=== PATIENT | female | born 1980 | race African-American/Black ===

== ENCOUNTER 2016-08-05 14:10 | Emergency (ER) | payer BC ==
[~2016-08-05] VITALS: Ht 170.2 cm; Wt 79.4 kg
[2016-08-05] MEDS ORDERED: ACETAMINOPHEN 325 MG TABLET PO ONE (15:00)
[2016-08-05] MEDS ORDERED: ACETAMINOPHEN 325 MG TABLET ONE (15:04)
[2016-08-05 15:37] LABS: BASOPHILS # (AUTO) 0.1 /CMM (0.0-0.2); BASOPHILS % (AUTO) 2.5 % (0.0-2.0); DIFF TOTAL % 100 %; EOSINOPHILS # (AUTO) 0.1 /CMM (0.0-0.7); HEMATOCRIT 35 % (33-45); HEMOGLOBIN 11.7 g/dL (11.5-14.8); LYMPHOCYTES # (AUTO) 1.1 /CMM (0.8-4.8); LYMPHOCYTES % (AUTO) 24.3 % (20.0-44.0); MEAN CORPUSCULAR HEMOGLOBIN 27 PG (26.0-33.0); MEAN CORPUSCULAR HGB CONC 33 g/dl (31.0-36.0); MEAN CORPUSCULAR VOLUME 81 fL (82-100); MONOCYTES # (AUTO) 0.2 /CMM (0.1-1.30); MONOCYTES % (AUTO) 3.5 % (2.0-12.0); NEUTROPHILS # (AUTO) 3.1 /CMM (1.8-8.9); NEUTROPHILS % (AUTO) 67.7 % (43.0-81.0); PLATELET COUNT (AUTO) 208 /CMM (150-450); RED BLOOD CELL COUNT(AUTO) 4.32 MIL/uL (4.0-5.2); WHITE BLOOD COUNT (AUTO) 4.6 K/uL (4.3-11.0)
[2016-08-05 15:42] LABS: KETONES,URINE Negative (NEGATIVE); LEUKOCYTE ESTERASE ,URINE Negative (NEGATIVE); PH,URINE 6.5 (5.0-8.0)
[2016-08-05 15:43] LABS: ADD UA MICROSCOPIC YES
[2016-08-05 15:45] LABS: ADD URINE CULTURE NO
[2016-08-05 16:54] VITALS: BP 124/78
== END 2016-08-05 16:55 | disposition home or self-care (01) ==
LOC: ER 14:15
DX: O46.8X1 Other antepartum hemorrhage, first trimester (principal); Z3A.12 12 weeks gestation of pregnancy; J45.909 Unspecified asthma, uncomplicated; M32.9 Systemic lupus erythematosus, unspecified; Z91.012 Allergy to eggs
CPT/HCPCS: 36415; 76856; 81001; 84702; 85025; 99285; A4606; Z7610; 81000-TC

== ENCOUNTER 2017-07-14 22:36 | Emergency (ER) | payer BC ==
[~2017-07-14] VITALS: Ht 170.2 cm; Wt 90.7 kg
--- NOTE | 2017-07-14 22:40 | NUR ---
36 YO female bb self. patient is alert x 3, c/o allergic reation x 30 min. patient noted angioedema, patient states she feels like her throat is closing. i took pt straight to ER bed, informed MD ramsay. Started a 20g left AC iv started. Medicated patient per verbal order. patient is gowned, placed on lunchroom monitor. will continue to monitor
[2017-07-14] MEDS ORDERED: FAMOTIDINE/PF INJ 20 MG/2 ML VIAL IV ONE (22:42)
[2017-07-14] MEDS ORDERED: EPINEPHRINE (1:1000) 1 MG/ML AMPUL ONE (22:42)
[2017-07-14] MEDS ORDERED: methylPREDNISolone SOD SUCC 125 MG/2ML VIAL ONE (22:42)
[2017-07-14] MEDS ORDERED: diphenhydrAMINE HCL 50 MG/ML VIAL ONE (22:42)
[2017-07-14] MEDS ORDERED: diphenhydrAMINE HCL 50 MG/ML VIAL IV ONE (23:00)
[2017-07-14] MEDS ORDERED: methylPREDNISolone SOD SUCC 125 MG/2ML VIAL IV ONE (23:00)
[2017-07-14] MEDS ORDERED: EPINEPHRINE (1:1000) MDV 30 MG/30ML VIAL SUBCUT ONE (23:00)
[2017-07-14] MEDS ORDERED: FAMOTIDINE/PF INJ 40 MG in IV D5W 250 ML IV ONE (23:00)
[2017-07-14] MEDS ORDERED: IV NS 0.9% 1,000 ML BAG IV ONE (23:00)
--- NOTE | 2017-07-15 00:35 | NUR ---
Patient discharged to home in stable condition. Written and verbal after care instructions given. Patient verbalizes understanding of instruction.IV removed. Catheter intact and site benign. Pressure and 4x4 applied to site. No bleeding noted. PT ambulatory with a steady gait VITAL SIGNS WITHIN NORMAL LIMITS.
[2017-07-15 00:39] VITALS: BP 116/68
== END 2017-07-15 00:40 | disposition home or self-care (01) ==
LOC: ER 22:39
DX: T78.40XA Allergy, unspecified, initial encounter (principal); J45.909 Unspecified asthma, uncomplicated; E06.3 Autoimmune thyroiditis; M32.9 Systemic lupus erythematosus, unspecified; Z91.012 Allergy to eggs; X58.XXXA Exposure to other specified factors, initial encounter; Y93.89 Activity, other specified; Y92.89 Other specified places as the place of occurrence of the external cause; Y99.8 Other external cause status
CPT/HCPCS: 96361; 96365; 96366; 96372; 96375; 99285; A4606; J0171; J1200; J2930; J3490; Z7610

== ENCOUNTER 2018-07-11 18:47 | Inpatient (IN) | payer BC, OTHER ==
[~2018-07-11] VITALS: Ht 170.2 cm; Wt 83.1 kg
--- NOTE | 2018-07-11 19:10 | NUR ---
PT BIBSELF COMPLAINING OF RIGHT LOWER QUADRANT PAIN RADIATING ALL OVER ABDOMEN SINCE THIS MORNING. PT STATES SHES HAD MULTIPLE EPISODES OF N/V/D. PT DENIES SOB, CHEST PAIN, DYSURIA, HEADACHE. PT AAOX4. RESPIRATIONS EVEN AND UNLABORED. SKIN WARM AND INTACT. VITAL SIGNS STABLE. WILL CONTINUE TO MONITOR
[2018-07-11 19:22] LABS: BASOPHILS % (AUTO) 0.4 % (0.0-2.0); EOSINOPHILS % (AUTO) 1.2 % (0.0-6.0); HEMATOCRIT 35 % (33-45); LYMPHOCYTES # (AUTO) 1.2 /CMM (0.8-4.8); LYMPHOCYTES % (AUTO) 14.1 % (20.0-44.0); MEAN CORPUSCULAR HGB CONC 34 g/dl (31.0-36.0); MEAN CORPUSCULAR VOLUME 81 fL (82-100); MONOCYTES # (AUTO) 0.6 /CMM (0.1-1.30); MONOCYTES % (AUTO) 6.5 % (2.0-12.0); NEUTROPHILS # (AUTO) 6.7 /CMM (1.8-8.9); NEUTROPHILS % (AUTO) 77.8 % (43.0-81.0); PLATELET COUNT (AUTO) 224 /CMM (150-450); RED BLOOD CELL COUNT(AUTO) 4.31 MIL/uL (4.0-5.2); WHITE BLOOD COUNT (AUTO) 8.7 K/uL (4.3-11.0)
[2018-07-11] MEDS ORDERED: ONDANSETRON HCL/PF 4 MG/2 ML VIAL ONE (19:22)
[2018-07-11] MEDS ORDERED: MORPHINE SULFATE INJ 4 MG/ML DISP.SYRIN ONE ×2 (19:22→21:09)
[2018-07-11] MEDS ORDERED: ONDANSETRON HCL/PF 4 MG/2 ML VIAL IVP ONE (19:30)
[2018-07-11] MEDS ORDERED: MORPHINE SULFATE INJ 2 MG/ML DISP.SYRIN IV ONE ×2 (19:30→21:30)
[2018-07-11] MEDS ORDERED: IV NS 0.9% 1,000 ML BAG IV ONE (19:30)
[2018-07-11 19:32] LABS: POTASSIUM 3.6 mmol/L (3.5-5.1)
[2018-07-11 19:38] LABS: ALBUMIN 3.3 g/dL (3.4-5.0); BILIRUBIN,DIRECT 0.1 mg/dL (0.0-0.2); BILIRUBIN,TOTAL 0.6 mg/dL (0.2-1.0); TOTAL PROTEIN, SERUM 6.4 g/dL (6.4-8.2)
[2018-07-11 19:48] LABS: APPEARANCE,URINE Clear (CLEAR); BILIRUBIN,URINE Negative (NEGATIVE); BLOOD, URINE Moderate Ery/uL (NEGATIVE); COLOR,URINE Yellow (YELLOW); KETONES,URINE Negative (NEGATIVE); LEUKOCYTE ESTERASE ,URINE Negative (NEGATIVE); NITRITE, URINE Negative (NEGATIVE); PH,URINE 8.5 (5.0-8.0); PROTEIN,URINE Trace mg/dl (NEGATIVE); UGLUCOSE Negative (NEGATIVE)
[2018-07-11] MEDS ORDERED: CT SWABBABLE VALVE TRANS SET 1 EA INFUS.SET MC ONE (19:53)
[2018-07-11] MEDS ORDERED: IOHEXOL-300 100 ML VIAL IV ONE (19:53)
[2018-07-11] MEDS ORDERED: IV NS 0.9% 250 ML IV ONE (19:54)
[2018-07-11 20:02] LABS: WBC,URINE 0-2 /HPF (0-3)
[2018-07-11 20:03] LABS: BACTERIA,URINE Rare /HPF (None Seen); MUCUS,URINE Few /LPF (None Seen)
--- NOTE | 2018-07-11 20:20 | NUR ---
PT BROUGHT BY RADIOLOGY FOR CT
[2018-07-11] MEDS ORDERED: CEFOXITIN 1 G VIAL ONE (21:09)
--- NOTE | 2018-07-11 21:16 | NUR ---
PAGED SURGEON REWEAVER, MESSAGE LEFT FOR DR MINAYA
--- NOTE | 2018-07-11 21:16 | NUR ---
PANEL PAGED; JENNY FUNERAL DIRECTOR AND EMBALMER
--- NOTE | 2018-07-11 21:25 | NUR ---
katelyn acute appendicitis
[2018-07-11] MEDS ORDERED: CEFOXITIN 2 G in IV NS 0.9% 100 ML IV ONE (21:30)
--- NOTE | 2018-07-11 21:53 | NUR ---
report given to efraín ruffin for jamil.
[2018-07-11 22:00] VITALS: BP 131/76
--- NOTE | 2018-07-11 22:00 | NUR ---
RN MS ADMITTING NOTES RECEIVED PATIENT FROM ER VIA PRERNA. DX. ACUTE APPENDICITIS. PATIENT IS ALERT AND ORIENTED X4, VERBALLY RESPONSIVE, ABLE TO MAKE NEEDS KNOWN. BREATHING EVEN AND UNLABORED. NO SOB NOTED. O2SAT 100% ON ROOM-AIR. WITH COMPLAINTS OF PAIN THE ABDOMEN 8-03/29. INFORMED PATIENT THAT I WILL PAGE THE DOCTOR FOR ORDERS. IV LINE ON THE RIGHT AC#20 INTACT AND PATENT. SKIN DRY AND WARM TO TOUCH. EXPLAINED THE PROCESS OF ADMISSION, INCLUDING SKIN ASSESSMENT. NO SKIN ISSUES FOUND. PATIENT'S GAIT IS STEADY. ORIENTED TO THE USE OF FACILITY AMENITIES. BELONGINGS ACCOUNTED FOR. ALL OTHER NEEDS ATTENDED TO. SAFETY MEASURES IN PLACE. CALL LIGHT WITHIN REACH. WILL CONTINUE TO MONITOR.
--- NOTE | 2018-07-11 22:02 | NUR ---
PT TRANSFERRED VIA GURNEY TO [facility] WITH EMT
--- NOTE | 2018-07-11 22:51 | NUR ---
RN MS NOTES PAGED DR. ALVARADO FOR ADMISSION ORDERS. AWAITING CALL BACK.
--- NOTE | 2018-07-12 00:26 | NUR ---
FRANCI RAMON RECEIVED A CALL FROM DR. BUTLER WITH THE FOLLOWING ORDERS: 1. LR @ 110CC/HR 2. MORPHINE 2MG IV Q2H PRN 3. ZOFRAN 4MG IV Q4H PRN 4. AMBIEN 5MG PO QHS PRN 5. CONTINUE MEFOXIN 2MG IV Q8H 6. OBTAIN CONSENT FOR A LAPAROSCOPIC APPENDECTOMY WITH POSSIBLE OPEN. ALL ORDERS NOTED AND CARRIED OUT. Addendum: 07/12/18 at 0030 by CRISTOPHER SANABRIA RN ALSO PER DR. BUTLER, HE WILL DO SURGERY ON THE PATIENT 07/12/18 MID-DAY (AFTER 11AM) AND TO HAVE PATIENT NPO.
[2018-07-12] MEDS ORDERED: ONDANSETRON HCL/PF 4 MG/2 ML VIAL IV PRN (00:30)
[2018-07-12] MEDS ORDERED: MORPHINE SULFATE INJ 2 MG/ML DISP.SYRIN IV PRN (00:30)
[2018-07-12] MEDS ORDERED: ZOLPIDEM TARTRATE 5 MG TABLET PO PRN ×2 (00:30→01:00)
[2018-07-12] MEDS: IV LR 1000 ML 1,000 ML IV PRN ×3 (00:46→19:03)
[2018-07-12] MEDS ORDERED: MAGNESIUM HYDROXIDE 30 ML UDC PO PRN (01:00)
[2018-07-12] MEDS ORDERED: HYDROCODONE/APAP 5/325MG 1 EACH TABLET PO PRN ×2 (01:00→17:00)
[2018-07-12] MEDS ORDERED: MAG HYDROX/AL HYDROX/SIMETH 30 ML UDC PO PRN (01:00)
[2018-07-12] MEDS ORDERED: ONDANSETRON HCL/PF 4 MG/2 ML VIAL IVP PRN ×2 (01:00→17:00)
[2018-07-12] MEDS ORDERED: Z GUARD REMEDY 2 OZ OINT TP PRN (01:00)
[2018-07-12] MEDS ORDERED: ACETAMINOPHEN 325 MG TABLET PO PRN (01:00)
[2018-07-12] MEDS: MORPHINE SULFATE INJ 4 MG/ML DISP.SYRIN IV PRN ×3 (01:17→08:30)
[2018-07-12] MEDS ORDERED: CEFOXITIN 2 G in IV NS 0.9% 100 ML IV SCH (05:00)
--- NOTE | 2018-07-12 05:22 | NUR ---
RN MS NOTES PATIENT HAS CEFOXITIN 2GM IV SCHEDULED FOR 5:00AM. CEFOXITIN 2G IV NOT AVAILABLE IN UNIT'S OMNICELL. ASKED DEREK, FRONT EDGER IF SHE CAN GET MEDICATION. PER DEREK, MEDICATION IS ALSO NOT IN THE NIGHT LOCKER. INFORMED CHARGE NURSE. PER CHARGE NURSE, WE'LL HAVE TO WAIT FOR PHARMACY TO OPEN, BUT TO CALL SOON THEY OPEN. ALSO, TO ENDORSE TO ONCOMING NURSE. WILL CONTINUE TO F/U.
[2018-07-12] MEDS ORDERED: GABA-532 PO (05:57)
[2018-07-12] MEDS ORDERED: HYDR200T81 PO (05:57)
[2018-07-12] MEDS ORDERED: SERT100T PO (05:57)
--- NOTE | 2018-07-12 06:42 | NUR ---
RN MS CLOSING NOTES PATIENT IN BED AWAKE. NO ACUTE CHANGES THROUGHOUT SHIFT. BREATHING EVEN AND UNLABORED. NO SOB NOTED. TOLERATING ROOM AIR. WITH COMPLAINTS OF ABDOMINAL PAIN - MORPHINE LAST GIVEN AT 0534. IV LINE ON RIGHT AC INTACT AND PATENT. SKIN DRY AND WARM TO TOUCH. AFEBRILE. ALL OTHER NEEDS ATTENDED TO. SAFETY MEASURES IN PLACE. CALL LIGHT WITHIN REACH. WILL ENDORSE TO ONCOMING NURSE FOR CONTINUITY OF CARE.
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
[2018-07-12 08:00] VITALS: BP 109/69
--- NOTE | 2018-07-12 08:00 | NUR ---
MS RN NOTES RECEIVED PATIENT AWAKE IN BED WITH NO DISTRESS NOTED. CALL LIGHT WITHIN REACH. PERIPHERAL LINE INTACT AND PATENT. NO C/O PAIN OR DISCOMFORT. BED IN LOW LOCK SETTING. ALL BELONGINGS KEPT NEAR BEDSIDE. WILL CONTINUE TO MONITOR.
[2018-07-12] MEDS ORDERED: LORAZEPAM INJ 2 MG/ML VIAL IV PRN (09:00)
[2018-07-12] MEDS: HYDROXYCHLOROQUINE 200 MG TABLET PO SCH (09:00)
[2018-07-12] MEDS: SERTRALINE HCL 50 MG TABLET PO SCH (09:00)
[2018-07-12] MEDS ORDERED: GABAPENTIN 100 MG CAPSULE PO PRN (09:00)
[2018-07-12] MEDS ORDERED: ANESTHESIA TRAY IN PYXIS 1 EA TRAY MC ONE (11:28)
[2018-07-12] MEDS ORDERED: BUPIVACAINE MPF 0.5% W/EPI INJ 30 ML VIAL ONE (11:29)
[2018-07-12] MEDS ORDERED: LIDOCAINE HCL/PF 1% 30 ML SDV ONE (11:29)
[2018-07-12] MEDS ORDERED: PIPERACILLIN /TAZOBACTAM 3.375 G in IV D5W 50 ML IV SCH (13:00)
[2018-07-12] MEDS: PIPERACILLIN /TAZOBACTAM 3.375 G in IV D5W 100 ML IV SCH ×2 (13:44→21:06)
--- NOTE | 2018-07-12 13:52 | NUR ---
PT BROUGHT TO O.R. WITH STABLE V/S.CONSENTS HAS BEEN SIGNED FOR LAPARASCOPIC APPENDECTOMY.
[2018-07-12] MEDS ORDERED: MIDAZOLAM HCL 2 MG/2ML VIAL ONE (14:19)
[2018-07-12] MEDS ORDERED: FENTANYL PF 250MCG/5ML AMPUL ONE (14:20)
[2018-07-12] MEDS ORDERED: FAMOTIDINE/PF INJ 20 MG/2 ML VIAL IV ONE (14:20)
[2018-07-12] MEDS ORDERED: METOCLOPRAMIDE HCL 10 MG/2 ML VIAL ONE (14:21)
[2018-07-12] MEDS ORDERED: ROCURONIUM BROMIDE 50 MG/5 ML ONE (14:21)
[2018-07-12] MEDS ORDERED: ALBUTEROL 17GM INHALER ONE (14:51)
[2018-07-12] MEDS ORDERED: GLYCOPYRROLATE 0.2 MG/ML VIAL ONE (15:10)
[2018-07-12 16:00] VITALS: BP 117/68
[2018-07-12] MEDS ORDERED: LORAZEPAM INJ 2 MG/ML VIAL IVP PRN (17:00)
[2018-07-12] MEDS: KETOROLAC TROMETHAMINE INJ 30 MG/ML VIAL IV SCH (17:09)
[2018-07-12] MEDS: HYDROMORPHONE 1 MG/1 ML DISP.SYRIN IV PRN ×2 (18:55→20:19)
--- NOTE | 2018-07-12 19:17 | NUR ---
PATIENT BACK FROM O.R. AND RECEIVED IN GOOD STABLE CONDITION. INCISION SITES WITH NO ACTIVE BLEEDING OR S/S INFECTION NOTED. VITALS REMAIN STABLE AND WNL. PRN DILAUDID 1MG IV AND EFFECTIVE AFTER 20MINS. WILL CONTINUE TO MONITOR.
--- NOTE | 2018-07-12 19:21 | NUR ---
MS RN CLOSING NOTES PATIENT REMAINS AWAKE IN BED IN STABLE CONDITION. NO C/O PAIN OR DISCOMFORT. ABDOMINAL INCISIONS WITH NO ACTIVE BLEEDING NOTED. VITALS REMAIN WNL. PERIPHERAL IV INTACT AND PATENT. CLEAR LIQUID DIET TOLERATED WELL. ALL BELONGINGS KEPT NEAR BEDSIDE. CALL LIGHT WITHIN REACH. WILL ENDORSE TO ONCOMING SHIFT.
--- NOTE | 2018-07-12 19:30 | NUR ---
MS/RN OPENING NOTES PT RECEIVED AWAKE, SEMI FOWLERS IN BED. A/OX3. ON ROOM AIR, BREATHING EVEN AND UNLABORED. DENIES SOB, N/V AT THIS TIME. NOTES PAIN 8/10 TO RIGHT ABDOMEN. REQUESTING PAIN MEDICATION. IV TO RAC PATENT AND INTACT RUNNING IVF ORDERED. S/P LAP. APPENDECTOMY TODAY. DENIES FLATUS AND BM THUS FAR. STATES SHE IS URINATING WELL. HYPOACTIVE BOWEL SOUNDS PRESENT, TOLERATING CLEAR LIQUID DIET. UMBILICAL INCISION SITE NOTED WITH SCANT AMOUNT OF BLOOD. REINFORCED WITH DRESSING. BED IN LOW/LOCKED POSITION WITH CALL LIGHT IN REACH. BILATERAL UPPER SIDE RAILS IN PLACE. WILL CONTINUE TO MONITOR
[2018-07-12 20:00] VITALS: BP 113/73
[2018-07-12] MEDS: ALBUTEROL FS 2.5 MG/3 ML VIAL.NEB NEB SCH (21:34)
[2018-07-12] MEDS: IPRATROPIUM NEB FS 0.5 MG/2.5 ML AMPUL.NEB NEB SCH (21:34)
--- NOTE | 2018-07-12 22:35 | NUR ---
MS/RN NOTES PT STILL WITH SCANT AMOUNT OF BLEEDING TO UMBILICAL INCISION. ABDOMEN IS SOFT BUT TENDER. V/S WNL. PT ANXIOUS AND REQUESTING PRN ATIVAN. WITH CONCERNS THAT SHE MIGHT BE BLEEDING INTERNALLY AND WOULD LIKE TO NOTIFY THE DOCTOR FOR POSSIBLE IMAGING TO R/O. NOTIFIED MD BUTLER. NO NEW ORDERS. INTERNAL BLEEDING VERY UNLIKELY. CONTINUE TO MONITOR BLEEDING AND VITAL SIGNS. ENDORSED TO PT AND VERBALIZED UNDERSTANDING. PRN ATIVAN ADMINISTERED.
[2018-07-13] MEDS: ALBUTEROL FS 2.5 MG/3 ML VIAL.NEB NEB SCH ×3 (01:31→13:16)
[2018-07-13] MEDS: IPRATROPIUM NEB FS 0.5 MG/2.5 ML AMPUL.NEB NEB SCH ×3 (01:32→13:15)
[2018-07-13] MEDS: PIPERACILLIN /TAZOBACTAM 3.375 G in IV D5W 100 ML IV SCH (05:54)
[2018-07-13] MEDS: KETOROLAC TROMETHAMINE INJ 30 MG/ML VIAL IV SCH ×2 (06:02)
[2018-07-13] MEDS: IV LR 1000 ML 1,000 ML IV PRN (06:02)
[2018-07-13 06:26] LABS: BASOPHILS % (AUTO) 0.1 % (0.0-2.0); EOSINOPHILS % (AUTO) 0.1 % (0.0-6.0); HEMATOCRIT 33 % (33-45); HEMOGLOBIN 11.4 g/dL (11.5-14.8); LYMPHOCYTES # (AUTO) 0.7 /CMM (0.8-4.8); LYMPHOCYTES % (AUTO) 9.1 % (20.0-44.0); MEAN CORPUSCULAR HGB CONC 35 g/dl (31.0-36.0); MEAN CORPUSCULAR VOLUME 80 fL (82-100); MONOCYTES # (AUTO) 0.3 /CMM (0.1-1.30); NEUTROPHILS # (AUTO) 6.2 /CMM (1.8-8.9); NEUTROPHILS % (AUTO) 86.7 % (43.0-81.0); PLATELET COUNT (AUTO) 214 /CMM (150-450); WHITE BLOOD COUNT (AUTO) 7.2 K/uL (4.3-11.0)
--- NOTE | 2018-07-13 06:45 | NUR ---
MS/RN CLOSING NOTES PT AWAKE, SEMI FOWLERS IN BED. ON ROOM AIR, BREATHING EVEN AND UNLABORED. DENIES SOB, N/V. PAIN TO ABDOMEN, MANAGED WITH PRN PAIN MEDS. PT STATES SHE IS PASSING GAS, NO BM YET. IV TO RAC PATENT AND INTACT RUNNING IVF ORDERED. TOLERATING CLEAR LIQUIDS WELL. ADVANCED TO FULL LIQUIDS FOR BREAKFAST. NO SIGNIFICANT CHANGES OVERNIGHT. ALL NEEDS MET. BLEEDING TO UMBILICAL INCISION SITE HAS SUBSIDED. BED REMAINS IN LOW/LOCKED POSITION WITH CALL LIGHT IN REACH AND BILATERAL UPPER SIDE RAILS IN PLACE. WILL ENDORSE TO DAY SHIFT RN HUE.
[2018-07-13 07:09] LABS: CALCIUM, SERUM 8.3 mg/dL (8.5-10.1); CREATININE 0.9 mg/dL (0.6-1.3); MAGNESIUM 1.9 mg/dL (1.8-2.4); POTASSIUM 4.1 mmol/L (3.5-5.1)
--- NOTE | 2018-07-13 07:34 | NUR ---
RN OPENING NOTES RECEIVED PATIENT IN BED RESTING, AWAKE, A/OX4, ABLE TO MAKE NEEDS KNOWN. NO ACUTE DISTRESS, NO SOB NOTED. DENIED PAIN OR DISCOMFORT AT THIS TIME. IV SITE INTACT AND PATENT. SCANT DRAINAGE/BLOOD ON UMBILICAL INCISION SITE, DRESSING CHANGED. KEPT PATIENT SAFE AND COMFORTABLE. BED IN LOW/LOCKED POSITION, SIDERAILS UP, BED ALARM ON, CALL LIGHT IN REACH. WILL CONTINUE TO MONITOR ACCORDINGLY.
[2018-07-13 08:00] VITALS: BP 114/75
[2018-07-13] MEDS: HYDROXYCHLOROQUINE 200 MG TABLET PO SCH (08:12)
[2018-07-13] MEDS: SERTRALINE HCL 50 MG TABLET PO SCH (08:12)
[2018-07-13] MEDS: HYDROMORPHONE 1 MG/1 ML DISP.SYRIN IV PRN (10:04)
--- NOTE | 2018-07-13 13:45 | NUR ---
DISCHARGED PATIENT IN STABLE CONDITION ACCOMPANIED BY PRIMARY RN TO THE LOBBY. PATIENT WILL TAKE UBER. DISCHARGE INSTRUCTIONS GIVEN, VERBALIZED UNDERSTANDING. DC PAPERWORK AND PRESCRIPTIONS GIVEN. ALL BELONGINGS RETURNED, FORMS SIGNED. REMOVED IV ACCESS, APPLIED PRESSURE, NO BLEEDING. NO COMPLICATIONS. REMOVED NAME BAND. REFUSED SKIN PHOTOS.
[2018-07-13] MEDS ORDERED: IPRATROPIUM NEB FS 0.5 MG/2.5 ML AMPUL.NEB NEB PRN (17:00)
[2018-07-13] MEDS ORDERED: ALBUTEROL FS 2.5 MG/3 ML VIAL.NEB NEB PRN (17:00)
== END 2018-07-13 14:00 | disposition home or self-care (01) | DRG 343 ==
LOC: ER 18:57 → MED 21:42
PROVIDERS: ADMIT Nurse Practitioner Acute Care; ATTEND Nurse Practitioner Acute Care
PROC: 0DTJ4ZZ Resection of Appendix, Percutaneous Endoscopic Approach (ICD-10-PCS; principal; 2018-07-12 13:30)
DX: K35.80 Unspecified acute appendicitis (principal); J45.909 Unspecified asthma, uncomplicated; E06.3 Autoimmune thyroiditis; Z91.012 Allergy to eggs; Z79.899 Other long term (current) drug therapy; F41.9 Anxiety disorder, unspecified; Z98.891 History of uterine scar from previous surgery; L93.0 Discoid lupus erythematosus
CPT/HCPCS: 36415; 80048-TC; 80076-TC; 81000-TC; 83690-TC; 83735-TC; 84100-TC; 84703-TC; 85025-TC; 85610-TC; 85730-TC; 86850-TC; 87081-TC; 87086-TC; A4606; A6402; G0378; J0694; J1100; J1170; J1885; J2060; J2250; J2270; J2405; J2543; J2704; J2710; J2765; J3010; J3490; J7030; J7050; J7060; J7120; Q9967; Z7610

== ENCOUNTER 2018-09-08 09:26 | Emergency (ER) | payer BC, OTHER ==
[~2018-09-08] VITALS: Ht 170.2 cm; Wt 81.6 kg
[~2018-09-08 09:26] MED LIST: GABA-532 PO; HYDR200T81 PO; SERT100T PO
--- NOTE | 2018-09-08 09:30 | NUR ---
AAOX3, CAME TO ER C/O LUPUS FLARE UP X 2 DAYS, GENERALIZED BODYACHES/JOINTS. RR IS EVEN AND UNLABORED WITH NAD NOTED. SKIN IS WARM AND DRY. AWAITING MD FOR EVAL.
[2018-09-08] MEDS ORDERED: MORPHINE SULFATE INJ 2 MG/ML DISP.SYRIN IV ONE (10:00)
[2018-09-08 10:03] LABS: BASOPHILS # (AUTO) 0.1 /CMM (0.0-0.2); BASOPHILS % (AUTO) 0.8 % (0.0-2.0); EOSINOPHILS % (AUTO) 2.5 % (0.0-6.0); HEMATOCRIT 42 % (33-45); LYMPHOCYTES # (AUTO) 2.3 /CMM (0.8-4.8); LYMPHOCYTES % (AUTO) 37.5 % (20.0-44.0); MEAN CORPUSCULAR HGB CONC 34 g/dl (31.0-36.0); MEAN CORPUSCULAR VOLUME 93 fL (82-100); MONOCYTES # (AUTO) 0.4 /CMM (0.1-1.30); MONOCYTES % (AUTO) 6.4 % (2.0-12.0); NEUTROPHILS # (AUTO) 3.3 /CMM (1.8-8.9); NEUTROPHILS % (AUTO) 52.8 % (43.0-81.0); PLATELET COUNT (AUTO) 207 /CMM (150-450); RED BLOOD CELL COUNT(AUTO) 4.48 MIL/uL (4.0-5.2); WHITE BLOOD COUNT (AUTO) 6.2 K/uL (4.3-11.0)
[2018-09-08 10:13] LABS: CALCIUM, SERUM 9.2 mg/dL (8.5-10.1); CREATININE 0.7 mg/dL (0.6-1.3); POTASSIUM 3.5 mmol/L (3.5-5.1)
[2018-09-08 10:18] LABS: ALBUMIN 4.1 g/dL (3.4-5.0); BILIRUBIN,DIRECT 0.1 mg/dL (0.0-0.2); BILIRUBIN,TOTAL 0.4 mg/dL (0.2-1.0); TOTAL PROTEIN, SERUM 7.9 g/dL (6.4-8.2)
[2018-09-08] MEDS ORDERED: MORPHINE SULFATE INJ 4 MG/ML DISP.SYRIN ONE (10:43)
[2018-09-08] MEDS ORDERED: predniSONE 20 MG TABLET ONE (10:43)
[2018-09-08] MEDS ORDERED: predniSONE 20 MG TABLET PO ONE (11:00)
--- NOTE | 2018-09-08 12:05 | NUR ---
PATIENT IN BED, NAD, VSS, KEPT COMFORTABLE AT THIS TIME.
[2018-09-08 12:19] LABS: APPEARANCE,URINE Clear (CLEAR); BILIRUBIN,URINE Negative (NEGATIVE); BLOOD, URINE Negative Ery/uL (NEGATIVE); COLOR,URINE Yellow (YELLOW); KETONES,URINE Negative (NEGATIVE); LEUKOCYTE ESTERASE ,URINE Negative (NEGATIVE); NITRITE, URINE Negative (NEGATIVE); PH,URINE 8.5 (5.0-8.0); PROTEIN,URINE Negative (NEGATIVE); UGLUCOSE Negative (NEGATIVE); UROBILINOGEN,URINE 0.2 EU/dL (0.2)
--- NOTE | 2018-09-08 13:43 | NUR ---
Patient discharged to home in stable condition. Written and verbal after care instructions given. Patient verbalizes understanding of instruction.
[2018-09-08 13:44] VITALS: BP 117/70
== END 2018-09-08 13:44 | disposition home or self-care (01) ==
LOC: ER 09:38
DX: M32.9 Systemic lupus erythematosus, unspecified (principal); M25.50 Pain in unspecified joint; M79.10 Myalgia, unspecified site; Z98.890 Other specified postprocedural states; Z90.89 Acquired absence of other organs; Z91.012 Allergy to eggs; Z79.899 Other long term (current) drug therapy
CPT/HCPCS: 36415; 80048-TC; 80076-TC; 81000-TC; 83690-TC; 84703-TC; 85025-TC; 85652-TC; 86140-TC; J2270

== ENCOUNTER 2021-01-23 19:31 | Emergency (ER) | payer BC, OTHER ==
[~2021-01-23] VITALS: Ht 170.2 cm; Wt 113.4 kg
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
--- NOTE | 2021-01-23 20:29 | NUR ---
WAIVER FORM SIGNED B Y THE PATIENT.
[2021-01-23] MEDS ORDERED: HYDROCODONE/APAP 5/325MG TABLET PO ONE (20:30)
[2021-01-23] MEDS ORDERED: HYDROCODONE/APAP 5/325MG TABLET ONE (20:31)
[2021-01-23] MEDS ORDERED: IBUP-1957 PO (22:40)
[2021-01-23] MEDS ORDERED: CYCL5TAB PO (22:40)
--- NOTE | 2021-01-23 22:55 | NUR ---
Patient discharged to home in stable condition. Written and verbal after care instructions given. Patient verbalizes understanding of instruction. PT ambulatory with a steady gait
[2021-01-23 23:01] VITALS: BP 130/82
== END 2021-01-23 22:55 | disposition home or self-care (01) ==
LOC: ER 19:37
DX: S20.212A Contusion of left front wall of thorax, initial encounter (principal); S09.8XXA Other specified injuries of head, initial encounter; M62.838 Other muscle spasm; J45.909 Unspecified asthma, uncomplicated; Z98.890 Other specified postprocedural states; Z91.012 Allergy to eggs; Z79.899 Other long term (current) drug therapy; V49.69XA Unspecified car occupant injured in collision with other motor vehicles in traffic accident, initial encounter; Y93.89 Activity, other specified; Y92.413 State road as the place of occurrence of the external cause; Y99.8 Other external cause status
CPT/HCPCS: 70450-TC; 71100-TC; 72125-TC; 73030-TC

== ENCOUNTER 2021-03-27 19:48 | Emergency (ER) | payer OTHER ==
[~2021-03-27] VITALS: Ht 170.2 cm; Wt 115.2 kg
[~2021-03-27 19:48] MED LIST changes: +CYCL5TAB PO; +IBUP-1957 PO
[2021-03-27] MEDS ORDERED: METH4TAB3 PO (20:18)
[2021-03-27] MEDS ORDERED: KETOROLAC TROMETHAMINE INJ 30 MG/ML VIAL ONE (20:26)
[2021-03-27] MEDS: KETOROLAC TROMETHAMINE INJ 60 MG/2 ML VIAL IM ONE (20:32)
[2021-03-27 20:33] VITALS: BP 145/80
--- NOTE | 2021-03-27 20:33 | NUR ---
Patient discharged to home in stable condition. Written and verbal after care instructions given. Patient verbalizes understanding of instruction.
== END 2021-03-27 20:34 | disposition home or self-care (01) ==
LOC: ER 19:49
DX: J01.00 Acute maxillary sinusitis, unspecified (principal); J01.10 Acute frontal sinusitis, unspecified; J45.909 Unspecified asthma, uncomplicated; M32.9 Systemic lupus erythematosus, unspecified; Z98.890 Other specified postprocedural states; Z90.89 Acquired absence of other organs; Z91.012 Allergy to eggs; Z79.899 Other long term (current) drug therapy
CPT/HCPCS: 96372; 99283; J1885

== ENCOUNTER 2024-04-15 18:06 | Inpatient (IN) | payer OTHER ==
[~2024-04-15] VITALS: Ht 167.6 cm; Wt 83.5 kg
[~2024-04-15 18:06] MED LIST changes: +METH4TAB3 PO
[2024-04-15 19:34] LABS: BASOPHILS % (AUTO) 0.7 % (0.0-2.0); EOSINOPHILS # (AUTO) 0.1 K/uL (0.0-0.7); HEMATOCRIT 37 % (33-45); HEMOGLOBIN 12.2 g/dL (11.5-14.8); LYMPHOCYTES # (AUTO) 1.4 K/uL (0.8-4.8); LYMPHOCYTES % (AUTO) 21.6 % (20.0-44.0); MEAN CORPUSCULAR HEMOGLOBIN 27 PG (26.0-33.0); MEAN CORPUSCULAR HGB CONC 33 g/dl (31.0-36.0); MEAN CORPUSCULAR VOLUME 82 fL (82-100); MONOCYTES # (AUTO) 0.3 K/uL (0.1-1.30); MONOCYTES % (AUTO) 4.9 % (2.0-12.0); NEUTROPHILS # (AUTO) 4.7 K/uL (1.8-8.9); NEUTROPHILS % (AUTO) 71.8 % (43.0-81.0); PLATELET COUNT (AUTO) 241 K/uL (150-450); RED BLOOD CELL COUNT(AUTO) 4.48 MIL/uL (4.0-5.2); RED CELL DISTRIBUTION WIDTH 15.3 % (11.5-15.0); WHITE BLOOD COUNT (AUTO) 6.6 K/uL (4.3-11.0)
[2024-04-15 19:42] LABS: CALCIUM, SERUM 8.8 mg/dL (8.5-10.1); CARBON DIOXIDE 27 mmol/L (21-32); CHLORIDE 107 mmol/L (98-107); CREATININE 1.1 mg/dL (0.6-1.3); GLUCOSE 76 mg/dL (74-106); POTASSIUM 4.1 mmol/L (3.5-5.1); SODIUM SERUM 140 mmol/L (136-145); UREA NITROGEN, BLOOD 16 mg/dL (7-18)
[2024-04-15] MEDS ORDERED: ACETAMINOPHEN 325 MG TABLET ONE (19:53)
[2024-04-15 19:55] LABS: ALANINE AMINOTRANSFERASE 20 U/L (12-78); ALBUMIN 3.4 g/dL (3.4-5.0); ALKALINE PHOSPHATASE 74 U/L (46-116); ASPARTATE AMINOTRANSFERASE 19 U/L (15-37); BILIRUBIN,TOTAL 0.3 mg/dL (0.2-1.0); NT-PRO BNP 56 pg/mL (0-125); TOTAL PROTEIN, SERUM 6.6 g/dL (6.4-8.2)
[2024-04-15] MEDS: ACETAMINOPHEN 325 MG TABLET PO ONE (19:55)
[2024-04-15] MEDS ORDERED: ASPIRIN 81 MG TAB.CHEW ONE (21:17)
[2024-04-15] MEDS: IV NS 0.9% 1,000 ML BAG IV PRN (21:23)
[2024-04-15] MEDS: ASPIRIN 81 MG TAB.CHEW PO ONE (21:30)
[2024-04-15] MEDS ORDERED: GABA-532 PO (21:33)
[2024-04-15 21:50] VITALS: BP 120/70; TEMP 97.5; O2SAT 100
[2024-04-15] MEDS ORDERED: MAG HYDROX/AL HYDROX/SIMETH 30 ML UDC PO PRN (22:00)
[2024-04-15] MEDS ORDERED: ONDANSETRON HCL/PF 4 MG/2 ML VIAL IVP PRN (22:00)
[2024-04-15] MEDS ORDERED: Z GUARD REMEDY 4 OZ OINT TP PRN (22:00)
[2024-04-15] MEDS ORDERED: MAGNESIUM HYDROXIDE 30 ML UDC PO PRN (22:00)
[2024-04-15] MEDS: IV NS 0.9% 1,000 ML IV SCH (22:18)
[2024-04-16 00:01] VITALS: BP 117/71; TEMP 98.2; O2SAT 100
[2024-04-16] MEDS: IBUPROFEN 400 MG TABLET PO PRN (00:24)
[2024-04-16 04:00] VITALS: BP 106/61; TEMP 98.2; O2SAT 99
[2024-04-16 07:25] LABS: BASOPHILS % (AUTO) 0.4 % (0.0-2.0); EOSINOPHILS # (AUTO) 0.1 K/uL (0.0-0.7); EOSINOPHILS % (AUTO) 2.1 % (0.0-6.0); HEMATOCRIT 32 % (33-45); HEMOGLOBIN 10.9 g/dL (11.5-14.8); LYMPHOCYTES # (AUTO) 1.7 K/uL (0.8-4.8); LYMPHOCYTES % (AUTO) 30.1 % (20.0-44.0); MEAN CORPUSCULAR HEMOGLOBIN 27 PG (26.0-33.0); MEAN CORPUSCULAR HGB CONC 34 g/dl (31.0-36.0); MEAN CORPUSCULAR VOLUME 79 fL (82-100); MONOCYTES # (AUTO) 0.3 K/uL (0.1-1.30); MONOCYTES % (AUTO) 5.8 % (2.0-12.0); NEUTROPHILS # (AUTO) 3.5 K/uL (1.8-8.9); NEUTROPHILS % (AUTO) 61.6 % (43.0-81.0); PLATELET COUNT (AUTO) 207 K/uL (150-450); RED BLOOD CELL COUNT(AUTO) 4.06 MIL/uL (4.0-5.2); RED CELL DISTRIBUTION WIDTH 14.8 % (11.5-15.0); WHITE BLOOD COUNT (AUTO) 5.6 K/uL (4.3-11.0)
[2024-04-16 07:39] LABS: CALCIUM, SERUM 7.8 mg/dL (8.5-10.1); CREATININE 0.8 mg/dL (0.6-1.3); PHOSPHORUS 3.9 mg/dL (2.5-4.9)
[2024-04-16 08:00] VITALS: BP 103/53; TEMP 98.2; O2SAT 98
[2024-04-16] MEDS: ACETAMINOPHEN 325 MG TABLET PO PRN (10:56)
[2024-04-16 15:40] VITALS: BP 114/73; TEMP 99.1; O2SAT 98
[2024-04-16 20:00] VITALS: BP 120/75; TEMP 98.6; O2SAT 96
[2024-04-17] VITALS: BP 107/61; TEMP 97.5; O2SAT 100
[2024-04-17 00:42] VITALS: BP_SYST 107; BP_SYST 127; BP_SYST 129; BP_DIAS 61; BP_DIAS 69; BP_DIAS 83; TEMP 97.5; O2SAT 100
[2024-04-17 05:49] LABS: CREATININE 0.9 mg/dL (0.6-1.3); POTASSIUM 4.3 mmol/L (3.5-5.1)
[2024-04-17 05:54] LABS: BASOPHILS % (AUTO) 0.5 % (0.0-2.0); EOSINOPHILS # (AUTO) 0.1 K/uL (0.0-0.7); EOSINOPHILS % (AUTO) 2.2 % (0.0-6.0); HEMATOCRIT 33 % (33-45); LYMPHOCYTES # (AUTO) 1.5 K/uL (0.8-4.8); LYMPHOCYTES % (AUTO) 34.1 % (20.0-44.0); MEAN CORPUSCULAR HEMOGLOBIN 27 PG (26.0-33.0); MEAN CORPUSCULAR HGB CONC 34 g/dl (31.0-36.0); MEAN CORPUSCULAR VOLUME 79 fL (82-100); MONOCYTES # (AUTO) 0.3 K/uL (0.1-1.30); MONOCYTES % (AUTO) 6.2 % (2.0-12.0); NEUTROPHILS # (AUTO) 2.5 K/uL (1.8-8.9); PLATELET COUNT (AUTO) 203 K/uL (150-450); RED BLOOD CELL COUNT(AUTO) 4.13 MIL/uL (4.0-5.2); WHITE BLOOD COUNT (AUTO) 4.4 K/uL (4.3-11.0)
[2024-04-17 05:57] LABS: PHOSPHORUS 4.2 mg/dL (2.5-4.9)
[2024-04-17 06:50] LABS: THYROID STIMULATING HORMONE 0.38 uIU/mL (0.358-3.74)
[2024-04-17 08:19] VITALS: BP 109/63; TEMP 98.1; O2SAT 99
[2024-04-17] MEDS: SERTRALINE HCL 50 MG TABLET PO SCH (08:30)
[2024-04-17 09:07] LABS: THYROID STIMULATING HORMONE 0.33 uIU/mL (0.358-3.74)
[2024-04-17] MEDS: ACETAMINOPHEN 650 MG/20.3 ML UDC PO PRN (11:27)
[2024-04-17 11:58] LABS: PREGNANCY TEST URINE QUAL NEGATIVE (NEGATIVE)
[2024-04-17] MEDS ORDERED: IOHEXOL-350 100 ML VIAL IV ONE (13:37)
[2024-04-17] MEDS ORDERED: CT SWABBABLE VALVE TRANS SET 1 EA INFUS.SET MC ONE (13:37)
[2024-04-17] MEDS ORDERED: IV NS 0.9% 250 ML IV ONE (13:37)
[2024-04-17 16:37] VITALS: BP 113/88; TEMP 98.2; O2SAT 99
[2024-04-19 08:10] LABS: FOLIC ACID 5.8 ng/mL (>3.0)
== END 2024-04-17 17:30 | disposition home or self-care (01) | DRG 312 ==
LOC: ER 18:11 → TELE 20:57 → MED 04-17 09:27
PROVIDERS: ATTEND Internal Medicine
DX: I95.1 Orthostatic hypotension (principal); M32.9 Systemic lupus erythematosus, unspecified; J45.909 Unspecified asthma, uncomplicated; Z91.012 Allergy to eggs; Z79.899 Other long term (current) drug therapy; D64.9 Anemia, unspecified; G43.109 Migraine with aura, not intractable, without status migrainosus; G44.209 Tension-type headache, unspecified, not intractable; E04.2 Nontoxic multinodular goiter; D32.9 Benign neoplasm of meninges, unspecified; E06.3 Autoimmune thyroiditis
CPT/HCPCS: 36415; 70496-TC; 70498-TC; 71045-TC; 73502; 73564-TC; 73590-TC; 80048-TC; 80061-TC; 80076-TC; 82550-TC; 82607-TC; 82728-TC; 83540-TC; 83735-TC; 83880; 83921; 84100-TC; 84425; 84439-TC; 84443-TC; 84484-TC; 84703-TC; 85025-TC; 85378-TC; 93307-TC; 93880-TC; 97116-TC; 97530-TC; A4223; G0378; J3490; J7030; J7050; Q9967

== ENCOUNTER 2024-07-27 20:53 | Emergency (ER) | payer OTHER ==
[~2024-07-27] VITALS: Ht 170.2 cm; Wt 90.7 kg
[~2024-07-27 20:53] MED LIST changes: -CYCL5TAB PO; -HYDR200T81 PO; -IBUP-1957 PO; -METH4TAB3 PO
[2024-07-27 21:25] VITALS: BP 127/85; TEMP 98; O2SAT 100
[2024-07-27] MEDS ORDERED: ACETAMINOPHEN 325 MG TABLET ONE (23:38)
[2024-07-27] MEDS: ACETAMINOPHEN 325 MG TABLET PO ONE (23:40)
== END 2024-07-28 00:18 | disposition home or self-care (01) ==
LOC: ER 20:59
DX: R51.9 Headache, unspecified (principal); J45.901 Unspecified asthma with (acute) exacerbation; Z77.22 Contact with and (suspected) exposure to environmental tobacco smoke (acute) (chronic); Z79.899 Other long term (current) drug therapy; Z90.89 Acquired absence of other organs; Z91.012 Allergy to eggs
CPT/HCPCS: 71045-TC